=== PATIENT | male | born 1955 | race Caucasian/White ===

== ENCOUNTER 2019-11-28 11:44 | Outpatient (CLI) | payer OTHER ==
[~2019-11-28 11:44] MED LIST: ASA81 MG PO; DICLOFENAC SODI50 MG PO; DIOVAN40 MG PO; KEPPRA500 MG PO; ORPH100T PO; SPRITAM250 MG; VALSARTAN-HCTZ1 EAC2 PO
== END 2019-11-28 11:52 | disposition home or self-care (01) ==
LOC: LAB 11:44
DX: J11.1 Influenza due to unidentified influenza virus with other respiratory manifestations (principal)

== ENCOUNTER 2019-12-01 11:22 | Outpatient (CLI) | payer OTHER | END 2019-12-01 11:34 | disposition home or self-care (01) | LOC: RAD 11:22 | DX: R05 Cough (principal) ==

== ENCOUNTER 2020-01-09 08:13 | Emergency (ER) | payer OTHER ==
[~2020-01-09] VITALS: Ht 177.8 cm; Wt 79.4 kg
== END 2020-01-09 14:57 | disposition home or self-care (01) ==
LOC: ER 08:13
DX: R11.11 Vomiting without nausea (principal); B34.9 Viral infection, unspecified; R50.9 Fever, unspecified

== ENCOUNTER 2021-05-11 08:34 | Emergency (ER) | payer OTHER ==
[~2021-05-11] VITALS: Ht 185.4 cm; Wt 85.7 kg
[2021-05-11] MEDS ORDERED: PEPCID AC20 MG PO (13:42)
[2021-05-11] MEDS ORDERED: CELEBREX100 MG PO (13:42)
== END 2021-05-11 13:52 | disposition home or self-care (01) ==
LOC: ER 08:34
DX: K29.70 Gastritis, unspecified, without bleeding (principal); R10.12 Left upper quadrant pain; R07.89 Other chest pain

== ENCOUNTER 2021-07-16 11:51 | Emergency (ER) | payer OTHER ==
[~2021-07-16] VITALS: Ht 185.4 cm; Wt 86.2 kg
[~2021-07-16 11:51] MED LIST changes: +CELEBREX100 MG PO; +PEPCID AC20 MG PO
== END 2021-07-16 14:57 | disposition home or self-care (01) ==
LOC: ER 11:51
DX: B34.9 Viral infection, unspecified (principal); Z03.818 Encounter for observation for suspected exposure to other biological agents ruled out

== ENCOUNTER 2022-02-06 15:18 | Emergency (ER) | payer OTHER ==
[~2022-02-06] VITALS: Ht 185.4 cm; Wt 87.1 kg
== END 2022-02-06 17:40 | disposition home or self-care (01) ==
LOC: ER 15:18
DX: M54.50 Low back pain, unspecified (principal)

== ENCOUNTER → 2024-11-07 | Emergency (ER) | payer OTHER ==
[~2024-11-07] VITALS: Ht 185.4 cm; Wt 87.5 kg
[~2024-11-07] MED LIST changes: +MEMANTINE HCL5 MG PO; +ROSUVASTATIN CAL5 MG PO
[2024-11-07 12:26] LABS: HEMATOCRIT 42.3 % (39.0-48.0); HEMOGLOBIN 14.7 g/dL (13-16.00); MEAN CELL VOLUME 92.4 fL (80.0-100.00); MEAN CORPUSCULAR HEMOGLOBIN 32.2 pg (27.00-32.0); MEAN CORPUSCULAR HGB CONC 34.8 g/dl (32.0-36.0); PH,URINE 5.5 (5.0-8.0); PLATELET COUNT 197 K/uL (150-450); RED BLOOD COUNT 4.58 M/uL (4.00-6.00); RED CELL DISTRIBUTION WIDTH 12.7 % (11.5-14.5); URINE APPEARANCE Clear; URINE BILIRRUBIN Negative (NEGATIVE); URINE BLOOD Negative; URINE COLOR Yellow; URINE GLUCOSE Negative (NEGATIVE); URINE KETONE Trace (NEGATIVE); URINE LEUKOCYTE Negative; URINE NITRATE Negative; URINE PROTEIN Negative (NEGATIVE)
[2024-11-07 12:29] LABS: URINE RBC 6.9 uL (0.0-20.8); URINE WBC 3.6 uL (0.0-23.2)
[2024-11-07 12:33] LABS: URINE BACTERIA 3.6 uL (0.0-1933); URINE EPITHELIAL CELLS 1.1 uL (0.0-38.8)
[2024-11-07 13:11] LABS: CALCIUM 8.7 mg/dL (8.5-10.1); CREATININE SERUM 1.17 mg/dL (0.70-1.30); GFR 61.81; POTASSIUM 4.32 mEq/L (3.5-5.1)
== END | disposition home or self-care (01) ==
LOC: ER 10:02
PROVIDERS: General Practice
DX: B34.9 Viral infection, unspecified (principal); R53.81 Other malaise; I10 Essential (primary) hypertension; Z20.822 Contact with and (suspected) exposure to COVID-19

== ENCOUNTER → 2025-05-07 | Emergency (ER) | payer OTHER ==
[~2025-05-07] VITALS: Ht 175.3 cm; Wt 81.6 kg
[~2025-05-07] MED LIST changes: +CEPHALEXIN500 M1 PO; +KETOROLAC TROMETHAMINE 60 MG VIAL IM ONE; +LIDOCAINE HCL 1% 10ML VIAL ONE
[2025-05-07 16:46] LABS: BASO % 0.3 % (0.1-1.2); EOS # 0.18 (0.04-0.54); EOS % 1.4 % (0.7-7.0); HEMATOCRIT 42.9 % (40.1-51.0); HEMOGLOBIN 14.7 g/dL (13.7-17.5); LYMPH # 1.11 (1.18-3.74); LYMPH % 8.4 % (19.3-53.1); MEAN CORPUSCULAR HEMOGLOBIN 31.8 pg (25.6-32.2); MONO % 7.6 % (4.7-12.5); NEUT # 10.83 (1.56-6.13); PLATELET COUNT 247 K/uL (163-369); RED BLOOD COUNT 4.62 M/uL (4.63-6.08); RED CELL DISTRIBUTION WIDTH 12.2 % (11.6-14.4)
[2025-05-07 17:19] LABS: ALBUMIN 4.2 gm/dL (3.4-5.0); BILIRUBIN TOTAL 0.53 mg/dL (0.3-1.2); CALCIUM 9.2 mg/dL (8.5-10.1); CREATININE SERUM 1.59 mg/dL (0.70-1.30); GFR 43.26; GLOBULINA 3.2 G/DL (2.4-3.5); POTASSIUM 4.52 mEq/L (3.5-5.1); TOTAL PROTEIN 7.4 gm/dL (6.4-8.2)
== END | disposition home or self-care (01) ==
LOC: ER 15:10
PROVIDERS: General Practice
DX: M79.652 Pain in left thigh (principal); F03.90 Unspecified dementia, unspecified severity, without behavioral disturbance, psychotic disturbance, mood disturbance, and anxiety; E78.00 Pure hypercholesterolemia, unspecified; I10 Essential (primary) hypertension; W10.0XXA Fall (on)(from) escalator, initial encounter; Y93.89 Activity, other specified; Y92.89 Other specified places as the place of occurrence of the external cause
CPT/HCPCS: 36415; 73551; 96372; 99283; J1885

== ENCOUNTER → 2025-07-29 | Outpatient (CLI) | payer OTHER ==
[~2025-07-29] MED LIST changes: -KETOROLAC TROMETHAMINE 60 MG VIAL IM ONE; -LIDOCAINE HCL 1% 10ML VIAL ONE
== END | disposition home or self-care (01) ==
LOC: NUCLEAR 07:00
PROVIDERS: ATTEND Psychiatry & Neurology Clinical Neurophysiology
DX: G30.0 Alzheimer's disease with early onset (principal)
CPT/HCPCS: 78803; A9557